=== PATIENT | male | born 1970 | race Caucasian/White ===

== ENCOUNTER 2016-07-07 17:44 | Emergency (ER) | payer OTHER ==
[2016-07-07 17:59] VITALS: BP 134/74; PULSE 70; RESP 14; TEMP 98.6; O2SAT 96
[2016-07-07] MEDS ORDERED: IBUPROFEN 600 MG TAB PO ONE (18:16)
--- NOTE | 2016-07-07 18:55 | UCPHY ---
H & P Time Seen by Provider: 07/07/16 18:48 Patient Type: Established HPI/ROS: This patient injured his right thigh tonight. He explains that they have an old deck with some rodding wooden he stepped right through the deck stopped by his left leg but the right leg full throughout all the way to the upper thigh. He sustained an abrasion to the lateral thigh and has some muscular pain to the lateral thigh. He reports the pain intensity is moderate slightly worse with walking. He has no difficulty bearing weight. He describes the pain as achy in nature. The incident occurred shortly prior to arrival. ROS: No injuries besides the right thigh. No numbness or tingling. 5 point ROS is otherwise negative. Past Medical/Surgical History: Otherwise healthy although his immunization status- tetanus 11 years ago Smoking Status: Former smoker Physical Exam: Physical Exam Vital signs are normal. General: No acute distress HEENT: Atraumatic. Eyes: Pupils equal and react to light. Extraocular motions are intact. Lungs: No respiratory distress. Cardiac: Brisk capillary refill is intact throughout. Pulses are 2+ and symmetric in the affected extremity. Skin: Superficial abrasion present to the right lateral thigh 12 x 8 cm in size with no active bleeding. No foreign bodies. Extremities: Atraumatic normal except for right side Right thigh: Patient has mild tenderness underlying the abrasion with very slight swelling. He is able to walk without difficulty. There is no associated knee trauma groin trauma or other findings. Neuro: Alert and oriented x3 with no sensorimotor deficits. Initial differential diagnosis: Abrasion, traumatic hematoma versus contusion right thigh Constitutional: Initial Vital Signs Temperature (C) 37 C 07/07/16 17:54 Heart Rate 70 07/07/16 17:54 Respiratory Rate 14 07/07/16 17:54 Blood Pressure 134/74 H 07/07/16 17:54 O2 Sat (%) 96 07/07/16 17:54 Allergies/Adverse Reactions: No Known Allergies Allergy (Verified 07/07/16 17:53) Home Medications: Medication Instructions Recorded NK [No Known Home Meds] 08/01/14 MDM/Departure - MDM Medications Given: Discontinued Medications Diphtheria/Tetanus/Acell Pertussis (Boostrix) 0.5 ml IM .ONCE ONE Stop: 07/07/16 19:13 Last Admin: 07/07/16 19:20 Dose: 0.5 ml Ibuprofen (Motrin) 600 mg PO EDNOW ONE Stop: 07/07/16 18:17 Last Admin: 07/07/16 18:30 Dose: 600 mg ED Course/Re-evaluation: Abrasions clean. Tegaderm dressing applied, Ck wrap applied. I counseled patient regarding traumatic hematoma and abrasion care. Discussion: Soft tissue injury without evidence of other trauma. - Depart Disposition: Home, Routine, Self-Care Clinical Impression: Thigh abrasion Qualifiers: Encounter type: initial encounter Laterality: right Qualified Code(s): S70.311A - Abrasion, right thigh, initial encounter Condition: Good Instructions: Abrasion (ED), Hematoma (ED) Additional Instructions: Diagnoses: Right thigh abrasion and hematoma-traumatic Plan: Ice 20 minutes at a time 3 times a day for the next 5-7 days Clean the abrasion daily with warm soapy water Ck wrap Avoid prolonged heat to the area. Return if he develops redness concerning for infection or other concerns. Referrals: Natali Babin MD [Primary Care Provider] - As per Instructions - PQRS PQRS Measurement: NA
[2016-07-07] MEDS ORDERED: TDAP ADULT 0.5 ML INJ (BOOSTRIX) IM ONE (19:12)
== END 2016-07-07 19:23 | disposition home or self-care (01) ==
LOC: CED 17:44
DX: S70.311A Abrasion, right thigh, initial encounter (principal); S70.11XA Contusion of right thigh, initial encounter; W13.3XXA Fall through floor, initial encounter
CPT/HCPCS: 99214-PO; G0463-PO